=== PATIENT | male | born 1945 | race Caucasian/White ===

== ENCOUNTER 2024-07-10 13:48 | Outpatient (CLI) | payer MEDICARE, SELFPAY ==
--- NOTE | 2024-07-10 13:49 | CT_ITS ---
FINAL REPORT TECHNIQUE: Axial images were obtained from the lung apex to the mid abdomen by computed tomography. Coronal reformatted images were obtained. This study was performed with techniques to keep radiation doses as low as reasonably achievable, (ALARA). Individualized dose reduction techniques using automated exposure control or adjustment of mA and/or kV according to the patient''s size were employed. CLINICAL HISTORY: SOB, NODULES COMPARISON: None FINDINGS: There is a 6 mm nodule in the right thyroid lobe which is nonspecific. Small mediastinal nodes are noted. There is no evidence of mediastinal mass. No axillary mass or adenopathy is seen.There is no pericardial or pleural effusion. Moderate emphysema and mild scarring are noted. Numerous calcified granulomas are seen throughout both lungs. There is a spiculated nodule in the anterior left lower lobe measuring 15 mm best seen on series 2 image 69. This may represent neoplasm or scar. No localized pulmonary inflammatory process is noted. The chest wall is intact.Limited images of the upper abdomen are unremarkable. IMPRESSION: 15 mm left lower lobe spiculated nodule may represent neoplasm or scar. Recommend PET/CT for further evaluation. 6 mm right thyroid lobe nodule, nonspecific. Consider follow-up ultrasound. Reviewed, Interpreted and Dictated by Abdi Og III, MD Transcribed by Carla Ann Authenticated and [facility]
== END 2024-07-10 23:59 | disposition home or self-care (01) ==
LOC: RAD 13:49
PROVIDERS: PCP Internal Medicine Pulmonary Disease; Visit Provider Internal Medicine Pulmonary Disease
DX: R91.8 Other nonspecific abnormal finding of lung field (principal); R06.09 Other forms of dyspnea; F17.210 Nicotine dependence, cigarettes, uncomplicated; R06.02 Shortness of breath; Z87.09 Personal history of other diseases of the respiratory system
CPT/HCPCS: 71250; 94060; 94618; 94726; 94729

== ENCOUNTER 2025-07-29 10:07 | Outpatient (CLI) | payer MEDICARE, SELFPAY ==
--- NOTE | 2025-07-29 10:45 | CT_ITS ---
FINAL REPORT TECHNIQUE: Routine axial images were obtained from the lung apices to below the diaphragm following IV contrast administration. Coronal and sagittal reformatted images were obtained. This study was performed with techniques to keep radiation doses as low as reasonably achievable, (ALARA). Individualized dose reduction techniques using automated exposure control or adjustment of mA and/or kV according to the patient's size were employed. CLINICAL HISTORY: Lymphadenopathy- DO CT WIth Contrast COMPARISON: 07/10/2024 FINDINGS: The previously noted right thyroid nodule is not well-seen on today's exam. There is no significant mediastinal mass or adenopathy. The ascending aorta measures up to 4.2 cm in diameter. There are multiple scattered calcified granulomas in both lungs. There is redemonstration of the spiculated mass in the left lower lobe. This mass measures 1.5 cm in greatest dimension, image 77 of series 3, and appears similar to the previous exam. IMPRESSION: Ascending aortic aneurysm, which is stable as compared to previous exam. 1.5 cm spiculated mass in the left lower lobe, which is stable as compared to previous exam. Follow-up in 1 year is recommended to confirm stability of the ascending aortic aneurysm and left lower lobe mass. Reviewed, Interpreted and Dictated by Dago Crocker MD Transcribed by Lorna Mays Authenticated and [facility]
--- OUTSIDE RECORDS SUMMARY | 2025-07-29 10:46 | XMS_ITS | Clinical Summary ---
[facility] [address] [place] [address] Care Team Providers Care Visual Educator Name Role Phone Ervin Amor MD Primary Care Provider [phone] Allergies No known active allergies Medications buPROPion XL (WELLBUTRIN XL) 150 MG 24 hr tabletIndications: Tobacco dependence due to cigarettes, in remission Take 1 tablet by mouth Every Morning. 90 tablet 3 06/20/20 22 Active omeprazole (priLOSEC) 40 MG capsule Take 1 capsule by mouth Daily. 90 capsule 1 01/09/20 23 Active celecoxib (CeleBREX) 200 MG capsuleIndications :Cervicalgia,Chron ic left-sided low back pain without sciatica,Chronic nonintractable headache, unspecified headache type,Cervical radiculopathy Take 1 capsule by mouth Daily. 90 capsule 3 01/09/20 23 Active atorvastatin (LIPITOR) 10 MG tabletIndications: Dyslipidemia Take 1 tablet by mouth Every Night. For cholesterol 90 tablet 3 01/16/20 23 Active aspirin 81 MG EC tabletIndications: Abnormal nuclear stress test Take 1 tablet by mouth Daily. 30 tablet 12 03/06/20 23 Active FLUoxetine (PROzac) 20 MG capsule Take 1 capsule by mouth once daily 90 capsule 3 07/16/20 23 Active traZODone (DESYREL) 100 MG tablet TAKE 1 TABLET BY MOUTH AT BEDTIME 90 tablet 3 07/16/20 23 Active ipratropium-albute rol (DUO-NEB) 0.5-2.5 mg/3 ml nebulizerIndicatio ns:Other emphysema,Wheezing INHALE 3 ML BY MOUTH VIA NEBULIZATION 4 TIMES A DATY 360 mL 3 09/27/20 23 Active Fluticasone-Salmet luis 232-14 MCG/ACT aerosol powder INHALE 1 PUFF TWICE DAILY 1 each 3 11/19/19 24 Active Active Problems Problem Noted Date Diagnosed Date Abnormal nuclear stress test 03/06/2023 Assessment & Plan (03/06/2023 3:12 PM EDT): Nuclear stress test from 02/27/23 revealed a moderate-sized area of inferior infarct with mild surrounding ischemia. Intermediate risk study. Patient continues to have shortness of breath and occasional chest tightness. - [facility] heart [facility] at [facility] -Start aspirin 81 mg once daily. Precordial pain 01/24/2023 Assessment & Plan (01/24/2023 11:41 PM EDT): Intermittent episodes of chest pain, nuclear stress test for further evaluation. Shortness of breath 01/24/2023 Assessment & Plan (03/06/2023 3:13 PM EDT): Multifactorial, patient has COPD which is currently stable. No recent exacerbations. - Left heart cath to rule out cardiac cause of shortness of breath Assessment & Plan (01/24/2023 11:42 PM EDT): Multifactoral, likely related to COPD. Echocardiogram for further evaluation. Dizziness 01/24/2023 Assessment & Plan (01/24/2023 11:42 PM EDT): Intermittent episodes of dizziness -Carotid duplex Pain in both lower extremities 01/24/2023 Assessment & Plan (01/24/2023 11:43 PM EDT): Bilateral lower extremity pain and weakness -Arterial duplex for further evaluation Impaired circulation of lower extremity 01/25/20 Chronic insomnia 01/08/2023 Polyneuropathy 01/08/2023 Gastroesophageal reflux disease 01/08/2023 Chronic left-sided low back pain without sciatic a 01/08/2023 Peripheral vascular disease 01/08/2023 Cervicalgia 01/08/2023 Atypical chest pain 01/08/2023 Dyslipidemia 01/08/2023 Chronic nonintractable headache 01/08/2023 Ascending aortic aneurysm 06/20/2022 Carpal tunnel syndrome 06/20/2022 Overview (06/20/2022): Left carpal tunnel syndrome, mild symptoms Chronic back pain 06/20/2022 Overview (06/20/2022): Chronic back pain and bilateral hip arthritis, related to degenerative arthritis and left trochanteric bursitis, being evaluated by Dr. Hobbs status post injection to left trochanteric bursa 2, subsequent evaluation with Dr. Martinez status post bilateral hip injections fall 2016 and low back injection fall 2016 Chronic rhinitis 06/20/2022 Elevated blood pressure read ing without diagnosis of hypertension 06/20/2022 Assessment & Plan (03/06/2023 3:09 PM EDT): Well-controlled, blood pressure today 126/70. 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 Overview (06/20/2022): XY chromosomes, initially raised as a female with some estrogen supplementation as a teen, subsequently wishing to live as a male, at age 24 having penile recon with a sm vaginal pouch by history left intact with poss oopherectomy and simultaneous appy, subsequently receiving testosterone supp in the past, patient having subsequently discontinued testosterone supplementation approximately 07/2014 Major depressive disorder, recurrent, moderate 0 06/20/2022 Nicotine dependence, cigarettes, uncomplicated 0 06/20/2022 Obstructive sleep apnea 06/20/2022 Overview (06/20/2022): Obstructive sleep apnea diagnosed fall 2015, failure of trial of CPAP machine and oxygen Assessment & Plan (03/06/2023 3:10 PM EDT): History of DELMIS diagnosed in 2015, unable to tolerate CPAP. Patient declined another trial of PAP therapy. Assessment & Plan (01/24/2023 11:49 PM EDT): Diagnosed in 2016, unable to tolerate CPAP machine. I suggested another trial of PAP therapy, patient declined. Other disorders of peripheral nervous system Other emphysema 06/20/2022 Personal history of colonic polyps 06/20/2022 Overview (07/29/2024): REPLACING DXS THAT WERE INACTIVATED AFTER THE 07/29 REGULATORY UPDATE Prediabetes 06/20/2022 Raynaud phenomenon 06/20/2022 Overview (06/20/2022): Raynaud's phenomenon noted July 2016 Shingles 06/20/2022 Overview (06/20/2022): Remote shingles on abdomen by history Tobacco abuse 06/20/2022 Overview (06/20/2022): Heavy tobacco abuse, suspected associated COPD, abstaining since 04/2015 Vitamin D deficiency 06/20/2022 Immunizations Immunization Administration Dates Next Due Fluzone High-Dose 65+YRS 09/29/2019,09/25/2018 Pneumococcal Conjugate 13-Valent (PCV13) 015 Pneumococcal Polysaccharide (PPSV23) 07/31/2016 Family History Medical History Relation Name Comments Migraine headaches Brother 1 Nephrolithiasis Brother 1 Mental illness Brother 2 COPD Father Heart attack Father Alcohol abuse Half-Sister Dementia Mother Cardiomyopathy Sister Depression Sister Fibromyalgia Sister Migraine headaches Sister Relation Name Status Comments Brother 1 Brother 2 Father (Age 69) Half-Sister (Age 40'S) Mother Sister Social History Tobacco Use Types Packs/Day Years Used Date Smoking Tobacco: Some Days Cigarettes 0.3 60 Smokeless Tobacco: Never Tobacco Cessation:Ready to Q uit: Not Asked; Counseling Given: Not Answered Alcohol Use Standard Drinks/Week Comments Yes 0 (1 standard drink = 0.6 oz pure alcohol) 2 glasses of wine nightly, previous heavier consumption AUDIT-C Answer Date Recorded Q1: How often do you have a drink containing alc ohol? Monthly or less 03/29/2023 Q2: How many drinks containi ng alcohol do you have on a typical day when you are drinking? 1 or 2 03/29/2023 Q3: How often do you have si x or more drinks on one occasion? Never 03/29/2023 PHQ-2 Answer Date Recorded Retired PHQ-9: Brief Depression Severity Measure Score 0 01/08/2023 Abuse Screen Answer Date Recorded Unsafe at Home or Work/School Not on file Feels Threatened by Someone? Not on file Does Anyone Keep You from Co ntacting Others or Doint Things Outside the Home? Not on file 04/14/2024 Physical Sign of Abuse Present Not on file 0 04/14/2024 Housing Stability Answer Date Recorded Current Living Arrangements Not on file 03/29 Potentially Unsafe Housing Conditions Not on nanette e 04/14/2024 Family and Community Support Answer Doug e Recorded Help with Day-to-Day Activities Not on file 08/10/2023 Lonely or Isolated Not on file 08/10/2023 Employment Answer Date Recorded Do you want help finding or keeping work or a lavern b? Not on file 08/10/2023 Disabilities Answer Date Recorded Concentrating, Remembering, or Making Decisions Difficulty Not on file 04/14/2024 Doing Errands Independently Difficulty Not on fi le 04/14/2024 Education Answer Date Recorded Help with school or training? Not on file Preferred Language Not on file 08/10/2023 PHQ-2 Answer Date Recorded Retired PHQ-9: Brief Depression Severity Measure Score 0 01/08/2023 Sex and Gender Information Value Date Recorded Sex Assigned at Not on file Legal Sex Male 1:22 PM EDT Gender Identity Not on file Sexual Orientation Not on file Last Filed Vital Signs Vital Sign Reading Time Taken Comments Blood Pressure 125/82 03/29/2023 12:45 PM EDT Pulse 65 03/29/2023 12:45 PM EDT Temperature 36.2 C (97.1 F) 03/29/2023 8:51 AM EDT Respiratory Rate 18 03/29/2023 10:45 AM EDT Oxygen Saturation 94% 03/29/2023 12:45 PM EDT Inhaled Oxygen Concentration - - Weight 70.5 kg (155 lb 6.4 oz) 03/29/2023 8:44 A M EDT Height 180.3 cm (5' 11 ) 03/29/2023 8:44 AM EDT Body Mass Index 21.67 03/29/2023 8:44 AM EDT Plan of Treatment Health Maintenance Due Date Last Done Comments TDAP/TD VACCINES (1 - Tdap) 1963 ZOSTER VACCINE (1 of 2) 1994 RSV Vaccine - Adults (1 - 1- dose 75+ series) 2019 ANNUAL WELLNESS VISIT 04/01/2025 04/01/2024 , 10/20/2021, 10/07/2020, Additional history exists INFLUENZA VACCINE 05/29/2025 10/07/2020, , 09/29/2019, Additional history exists COVID-19 Vaccine (1 - 2023-2 5 season) 2025 Pneumococcal Vaccine 50+ Completed 07/31/2016, 10/2014 Insurance MEDICARE A & B Care Teams Visual Educator Relationship Specialty Start Date End Date Ervin Amor MD [address] [place] [address] [place] [id number] PCP - General Internal Medicine 06/20/22
[2025-07-29 11:00] LABS: Blood Urea Nitrogen 22 mg/dl (9-20); Creatinine,Serum 0.90 mg/dl (0.66-1.25); Estimated Glomerular Filt Rate 81 ml/min (>60); GFR (African American) 98 ML/MIN (>60)
[2025-07-29] MEDS: IOPAMIDOL-370 (76%);100ML BOTTLE 75 ML IV (12:12)
[2025-07-29] MEDS: SODIUM CHLORIDE 0.9% 10ML SYR (RAD ONLY) 10 ML IV (12:12)
== END 2025-07-29 23:59 | disposition home or self-care (01) ==
LOC: RAD 10:10
PROVIDERS: PCP Family Medicine; Visit Provider Internal Medicine Pulmonary Disease
DX: I71.40 Abdominal aortic aneurysm, without rupture, unspecified (principal); R91.8 Other nonspecific abnormal finding of lung field; R59.0 Localized enlarged lymph nodes
CPT/HCPCS: 36415; 71260; 82565; 84520; Q9967